=== PATIENT | female | born 1990 | race Caucasian/White ===

== ENCOUNTER 2023-12-09 13:34 | Outpatient (CLI) | payer OTHER | END 2023-12-09 13:43 | disposition home or self-care (01) | LOC: RAD 13:34 | DX: M99.01 Segmental and somatic dysfunction of cervical region (principal); M99.02 Segmental and somatic dysfunction of thoracic region; M99.03 Segmental and somatic dysfunction of lumbar region; M99.04 Segmental and somatic dysfunction of sacral region; M99.05 Segmental and somatic dysfunction of pelvic region ==

== ENCOUNTER 2025-01-07 14:46 | Outpatient (CLI) | payer OTHER | END 2025-01-07 14:49 | disposition home or self-care (01) | LOC: PRENATAL 14:46 | PROVIDERS: ATTEND Obstetrics & Gynecology Maternal & Fetal Medicine | DX: O36.80X0 Pregnancy with inconclusive fetal viability, not applicable or unspecified (principal); Z36.82 Encounter for antenatal screening for nuchal translucency; Z14.8 Genetic carrier of other disease; O36.1999 Maternal care for other isoimmunization, unspecified trimester, other fetus; Z3A.11 11 weeks gestation of pregnancy ==

== ENCOUNTER → 2025-03-05 08:18 | Outpatient (CLI) | payer OTHER | END | disposition home or self-care (01) | LOC: PRENATAL 08:00 | PROVIDERS: ATTEND Obstetrics & Gynecology Maternal & Fetal Medicine | DX: O44.00 Complete placenta previa NOS or without hemorrhage, unspecified trimester (principal); O36.1999 Maternal care for other isoimmunization, unspecified trimester, other fetus; Z3A.20 20 weeks gestation of pregnancy ==

== ENCOUNTER → 2025-06-10 09:15 | Outpatient (CLI) | payer OTHER | END | disposition home or self-care (01) | LOC: PRENATAL 09:15 | PROVIDERS: ATTEND Obstetrics & Gynecology Maternal & Fetal Medicine | DX: O26.849 Uterine size-date discrepancy, unspecified trimester (principal); O36.8199 Decreased fetal movements, unspecified trimester, other fetus; O36.1999 Maternal care for other isoimmunization, unspecified trimester, other fetus; Z3A.33 33 weeks gestation of pregnancy ==

== ENCOUNTER 2025-07-21 11:37 | Inpatient (IN) | payer OTHER ==
[2025-07-09 12:58] LABS: URINE APPEARANCE Clear; URINE BILIRRUBIN Negative (NEGATIVE); URINE BLOOD Negative; URINE COLOR Yellow; URINE GLUCOSE Negative (NEGATIVE); URINE KETONE Negative (NEGATIVE); URINE LEUKOCYTE Negative; URINE NITRATE Negative; URINE PROTEIN Negative (NEGATIVE); URINE UROBILINOGEN 0.2 E.U./dl
[2025-07-09 13:02] LABS: URINE BACTERIA 431.8 uL (0.0-1933); URINE EPITHELIAL CELLS 4.6 uL (0.0-38.8); URINE RBC 2.7 uL (0.0-20.8); URINE WBC 3.6 uL (0.0-23.2)
[2025-07-09 13:08] LABS: BASO % 0.6 % (0.1-1.2); EOS # 0.03 (0.04-0.54); EOS % 0.5 % (0.7-7.0); LYMPH # 1.48 (1.18-3.74); LYMPH % 23.6 % (19.3-53.1); MEAN PLATELET VOLUME 9.70 fl (9.4-12.4); MONO # 0.56 (0.24-0.82); MONO % 8.9 % (4.7-12.5); NEUT # 4.14 (1.56-6.13); NEUT % 65.9 % (34.0-71.1); RED CELL DISTRIBUTION WIDTH 13.2 % (11.6-14.4)
[2025-07-09 13:13] LABS: URINE CAST 0.00 uL (0.0-1.40)
[2025-07-09 13:47] LABS: INR 0.94
[2025-07-09 14:03] LABS: ALT/SGPT 22.0 U/L (12-78); AST/SGOT 19.0 U/L (15-37); BILIRUBIN TOTAL 0.28 mg/dL (0.3-1.2); BUN CREA RATIO 15.0 (7.0-25.0); CREATININE SERUM 0.67 mg/dL (0.55-1.02); GFR 100.16; GLOBULINA 4.2 G/DL (2.4-3.5); GLUCOSE FASTING 67.0 mg/dL (65-100); OSMOLALITY SERUM 275.0 MOSM/KG (275-295)
[2025-07-23 02:39] VITALS: BP 106/70
[2025-07-23] MEDS ORDERED: PRENATAL TABLE1 EAC4 PO (03:32)
[2025-07-23] MEDS ORDERED: RINGERS SOLUTION,LACTATED 1,000 ML IV SCH (03:45)
[2025-07-23 07:12] VITALS: BP 113/22
[2025-07-23] MEDS ORDERED: MORPHINE SULFATE 4 MG/ML VIAL IV ONE (08:45)
[2025-07-23] MEDS ORDERED: KETOROLAC TROMETHAMINE 30 MG VIAL IV PRN (12:15)
[2025-07-23] MEDS ORDERED: OXYTOCIN 1,000 ML IV SCH (12:15)
[2025-07-23] MEDS ORDERED: PROMETHAZINE HCL 25 MG/ML AMPUL IV PRN (12:15)
[2025-07-23] MEDS ORDERED: CEFAZOLIN SODIUM 1,000 MG VIAL IV SCH (13:00)
[2025-07-23] MEDS ORDERED: CEFAZOLIN SODIUM 1,000 MG VIAL IV ONE (13:45)
[2025-07-23] MEDS ORDERED: ERYTHROMYCIN BASE OPHT 1GM EACH TUBE OP ONE (13:45)
[2025-07-23] MEDS ORDERED: OXYTOCIN 20 UNITS/1000ML RL PIGGYBAG IV ONE (13:45)
[2025-07-23] MEDS ORDERED: LABETALOL HCL 200 MG/40 ML VIAL IV ONE ×3 (14:00→15:00)
[2025-07-23] MEDS ORDERED: MAGNESIUM SULFATE IN WATER 4 GM/100 ML PIGGYBACK IV NR (15:00)
[2025-07-23] MEDS ORDERED: MAGNESIUM SULFATE IN WATER 0.04 GM/ML IV.SOLN IV SCH (15:00)
[2025-07-23] MEDS ORDERED: OXYTOCIN 10 UNITS/ML VIAL ONE (16:34)
[2025-07-23 16:55] VITALS: BP 101/57
[2025-07-23 20:00] VITALS: BP 95/58
[2025-07-23 21:35] LABS: BASO % 0.3 % (0.1-1.2); EOS # 0.02 (0.04-0.54); EOS % 0.1 % (0.7-7.0); LYMPH # 1.44 (1.18-3.74); LYMPH % 10.2 % (19.3-53.1); MEAN PLATELET VOLUME 9.70 fl (9.4-12.4); MONO # 0.62 (0.24-0.82); MONO % 4.4 % (4.7-12.5); NEUT # 11.92 (1.56-6.13); NEUT % 84.6 % (34.0-71.1); RED CELL DISTRIBUTION WIDTH 13.5 % (11.6-14.4)
[2025-07-23 21:36] LABS: URINE APPEARANCE Clear; URINE BILIRRUBIN Negative (NEGATIVE); URINE BLOOD Large; URINE COLOR Yellow; URINE GLUCOSE Negative (NEGATIVE); URINE KETONE Negative (NEGATIVE); URINE LEUKOCYTE Trace; URINE NITRATE Negative; URINE PROTEIN Negative (NEGATIVE); URINE UROBILINOGEN 0.2 E.U./dl
[2025-07-23 21:40] LABS: URINE BACTERIA 35.9 uL (0.0-1933); URINE RBC 1360.9 uL (0.0-20.8); URINE WBC 13.6 uL (0.0-23.2)
[2025-07-23 21:41] LABS: URINE CAST 0.14 uL (0.0-1.40); URINE EPITHELIAL CELLS 0.9 uL (0.0-38.8)
[2025-07-23 22:05] LABS: ALT/SGPT 16.0 U/L (12-78); AST/SGOT 22.0 U/L (15-37); BILIRUBIN TOTAL 0.31 mg/dL (0.3-1.2); BUN CREA RATIO 10.0 (7.0-25.0); CREATININE SERUM 0.77 mg/dL (0.55-1.02); GFR 85.31; GLOBULINA 3.0 G/DL (2.4-3.5); GLUCOSE FASTING 111.0 mg/dL (65-100); OSMOLALITY SERUM 278.0 MOSM/KG (275-295)
[2025-07-23 23:47] VITALS: BP 98/60
[2025-07-24] MEDS ORDERED: MAGNESIUM SULFATE IN WATER 0.04 GM/ML IV.SOLN IV ONE (00:21)
[2025-07-24 03:12] VITALS: BP 104/68
[2025-07-24 06:15] VITALS: BP 99/67; O2SAT 99
[2025-07-24] MEDS ORDERED: DOCUSATE SODIUM 100MG CAP PO SCH (09:00)
[2025-07-24] MEDS ORDERED: SIMETHICONE 125 MG CAPSULE PO SCH (09:00)
[2025-07-24 11:48] VITALS: BP 104/69; O2SAT 98
[2025-07-24] MEDS ORDERED: ACETAMINOPHEN WITH CODEINE 1 UDTAB TABLET PO PRN (14:00)
[2025-07-24] MEDS ORDERED: FF) RHO(D) IMMUNE GLOBULIN (POM) IM ONE (14:15)
[2025-07-24] MEDS ORDERED: MAGNESIUM SULFATE IN WATER 500 ML IV SCH (15:00)
[2025-07-24 18:56] VITALS: BP 106/67
[2025-07-25 00:32] VITALS: BP 94/60
[2025-07-25 07:15] LABS: BASO % 0.5 % (0.1-1.2); EOS # 0.05 (0.04-0.54); EOS % 0.5 % (0.7-7.0); LYMPH # 2.12 (1.18-3.74); LYMPH % 20.2 % (19.3-53.1); MEAN PLATELET VOLUME 9.90 fl (9.4-12.4); MONO # 0.75 (0.24-0.82); MONO % 7.2 % (4.7-12.5); NEUT # 7.45 (1.56-6.13); NEUT % 71.0 % (34.0-71.1); RED CELL DISTRIBUTION WIDTH 14.3 % (11.6-14.4)
[2025-07-25 07:50] LABS: ALT/SGPT 15.0 U/L (12-78); AST/SGOT 22.0 U/L (15-37); BILIRUBIN TOTAL 0.18 mg/dL (0.3-1.2); BUN CREA RATIO 18.0 (7.0-25.0); CREATININE SERUM 0.62 mg/dL (0.55-1.02); GFR 109.54; GLOBULINA 3.0 G/DL (2.4-3.5); GLUCOSE FASTING 83.0 mg/dL (65-100); OSMOLALITY SERUM 287.0 MOSM/KG (275-295)
[2025-07-25 08:50] VITALS: BP 97/60
[2025-07-25] MEDS ORDERED: IRON/V.C/V.B12/FOLIC A/VIT. E 1 CAPL CAPLET PO SCH (09:04)
[2025-07-25 17:29] VITALS: BP 100/64
[2025-07-26 08:00] VITALS: BP 105/71
== END 2025-07-26 13:27 | disposition home or self-care (01) | DRG 788 ==
LOC: OB/GYN 11:37 → LDR 07-23 03:07 → OB/GYN 07-23 03:07 → O/R 07-23 11:52 → OB/GYN 07-23 12:52
PROVIDERS: Student in an Organized Health Care Education/Training Program; ADMIT Obstetrics & Gynecology; ATTEND Obstetrics & Gynecology
PROC: 4A1HXCZ Monitoring of Products of Conception, Cardiac Rate, External Approach (ICD-10-PCS; 2025-07-23)
PROC: 10D00Z1 Extraction of Products of Conception, Low, Open Approach (ICD-10-PCS; principal; 2025-07-23 11:30)
DX: O76 Abnormality in fetal heart rate and rhythm complicating labor and delivery (principal); O36.8330 Maternal care for abnormalities of the fetal heart rate or rhythm, third trimester, not applicable or unspecified; O69.81X0 Labor and delivery complicated by cord around neck, without compression, not applicable or unspecified; O14.14 Severe pre-eclampsia complicating childbirth; Z3A.40 40 weeks gestation of pregnancy; Z37.0 Single live birth

== ENCOUNTER → 2025-07-21 | Outpatient (CLI) | payer OTHER | END | disposition home or self-care (01) | LOC: NST 13:49 | PROVIDERS: ATTEND Obstetrics & Gynecology | DX: Z34.83 Encounter for supervision of other normal pregnancy, third trimester (principal) ==